=== PATIENT | female | born 1995 | race Asian ===

== ENCOUNTER 2020-04-26 16:56 | Inpatient (IN) | payer BC ==
[~2020-04-26] VITALS: Ht 147.3 cm; Wt 56.3 kg
[2020-04-26] MEDS ORDERED: magnesium hydroxide 30ml (MOM) UD suspension PO PRN (19:45)
[2020-04-26] MEDS ORDERED: loperamide 2mg capsule PO PRN (19:45)
[2020-04-26] MEDS ORDERED: mag hydrox/Alum hydrox/simeth 30ml oral suspension PO PRN (19:45)
[2020-04-26] MEDS ORDERED: acetaminophen 325mg tablet PO PRN ×2 (19:45)
[2020-04-26] MEDS ORDERED: LORazepam 1 MG tablet PO PRN (19:45)
[2020-04-26] MEDS ORDERED: PRAZ2CAP2 PO (20:17)
[2020-04-26] MEDS ORDERED: VENL150C2 PO (20:17)
[2020-04-26] MEDS ORDERED: BUPR300T53 PO (20:17)
[2020-04-26] MEDS ORDERED: ARIP10TA9 PO (20:17)
[2020-04-26] MEDS ORDERED: VENL37.55 PO (20:17)
[2020-04-26 20:19] VITALS: BP 120/87
[2020-04-26] MEDS: buPROPion SR 150mg tablet PO SCH (20:41)
[2020-04-26] MEDS: ARIPIPRAZOLE 10 MG TABLET PO SCH (21:20)
[2020-04-26] MEDS: prazosin 1mg capsule PO SCH (21:20)
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
[2020-04-27] MEDS: buPROPion SR 150mg tablet PO SCH ×3 (08:02→21:09)
[2020-04-27] MEDS: venlafaxine XR 37.5mg cap (Q24H) PO SCH (08:02)
[2020-04-27] MEDS: venlafaxine XR 75mg capsule (Q24H) PO SCH (08:02)
[2020-04-27 08:21] VITALS: BP 106/66
[2020-04-27 09:07] LABS: CHOLESTEROL 199 MG/DL (0-200); HDL CHOLESTEROL 98 MG/DL (35-60); LDL CHOLESTEROL 99 MG/DL (50-100); TRIGLYCERIDES 89 MG/DL (20-135)
--- NOTE | 2020-04-27 10:00 | NUR ---
Group Therapy: Process Group This Clinicians goal for this process group were as follows: (1) Ask scaling questions about Patients current anxiety, depression, and irritability symptoms as a check-in. (2) Provide psychoeducation on differences between passive, passive-aggressive, assertive, and aggressive forms of communication. (3) Provide psychoeducation on fair fighting rules to illustrate principles of assertive communication. (4) Process Patients thoughts and reflections on this topic within the group milieu. Patient identified experiencing the following levels of anxiety, depression, and anger/irritability while present in the group milieu (0-low; 10-High). Anxiety: 0/10 Depression: 6/10 Anger/irritability: 0/10 Patient presented as properly oriented x4 during the process group. Patient was dressed in green hospital scrubs within the milieu. Psychomotor activity was unremarkable. Patient's thought content was clear, and concrete. Patient's thought process was clear, coherent, and linear. This Clinician did not observe Patient responding to any internal stimuli during session. The rate, latency, and tone of Patients speech was within normal limits. Patients speech was clear, and understandable. Patient maintained intermittent eye contact with this Clinician. Patient presented in calm euthymic mood, with blunted affect during the process group. Patient presented as cooperative, verbally engaged when addressed by this Clinician, and nonobtrusive within the group milieu. This Clinician introduced himself to Patient as it was her first time present in the group milieu. Patient presented as largely subdued during the process group discussion on different forms of communication--passive, aggressive, and assertive--but was able to correctly identify different traits commonly associated with each style of communication when prompted by this Clinician to do so. Kraig Lindsey MA, [employer] Addendum: 04/27/20 at 1117 by Kraig Lindsey SS Amended: Links added.
--- NOTE | 2020-04-27 11:48 | NUR ---
Assessment Presenting Issues: Pt was admitted to [facility] after being 5150 following an intentional OD of her prescription meds. Interventions: SS utilized OK strategies to engage pt in completing her bio-psychosocial assessment, PTSD, and Dissociative Experience Scale. Per psychosocial assessment pt's sxs and experiences appears to meet DSM 5 criteria for MDD-single episode-recurrent and there appears to be a seasonal impact associated with PHF admissions. Furthermore the PTSD Checklist score indicates that pt's sxs meet DSM 5 criteria for PTSD. DESII score suggests that there is a high degree of dissociative experiences. Discussed results of assessment data with pt and educated her on available options @ [facility] to treat her sxs. Pt agreeable to medication treatment and psychotherapeutic interventions and CM support for dcp. Pt signed CHUCKY & TP # 9. Plan: SS will consult w/MD & therapists re treatment options. Lashell Mckeon LCSW Addendum: 04/29/20 at 1155 by Lashell GAMINO Amended: Links added.
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
[2020-04-27 19:32] VITALS: BP 106/71
[2020-04-27] MEDS: ARIPIPRAZOLE 10 MG TABLET PO SCH (21:09)
[2020-04-27] MEDS: prazosin 1mg capsule PO SCH (21:09)
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
[2020-04-28 07:39] VITALS: BP 111/68
[2020-04-28] MEDS: venlafaxine XR 37.5mg cap (Q24H) PO SCH (08:01)
[2020-04-28] MEDS: buPROPion SR 150mg tablet PO SCH ×2 (08:01→20:00)
[2020-04-28] MEDS: venlafaxine XR 75mg capsule (Q24H) PO SCH (08:01)
--- NOTE | 2020-04-28 10:00 | NUR ---
Group Therapy: Process Group This Clinicians goal for this process group were as follows: (1) Ask scaling questions about patients current anxiety, depression, and irritability symptoms as a check-in. (2) Provide psychoeducation on grounding activities as a means to reduce the acuity of unwanted mental health symptoms. (3) Introduce mandalas as one such activity for group participation within the milieu. (4) Check-in with patients during the coloring activity to reinforce the importance of engaging in adaptive grounding activities. Patient identified experiencing the following levels of anxiety, depression, and anger/irritability while present in the group milieu (0-low; 10-High). Anxiety: 0/10 Depression: 6/10 Anger/irritability: 0/10 Patient presented as properly oriented x4 during the process group. Patient was dressed in green hospital scrubs within the milieu. Psychomotor activity was unremarkable. Patient's thought content was clear, and concrete. Patient's thought process was clear, coherent, and linear. This Clinician did not observe Patient responding to any internal stimuli during session. The rate, and latency, of Patients speech was within normal limits. She spoke in a soft tone of voice. Patients speech was clear, and understandable. Patient sat with her back to this Clinician as she colored her mandala and did not make eye contact with this Clinician. Patient presented in calm euthymic mood, with blunted affect during the process group. Patient presented as cooperative and nonobtrusive within the group milieu. Patient quietly colored her mandala during the process group discussion. She was largely verbally subdued, but responded to this Clinician casually when he talked to her and asked her questions. Kraig Lindsey MA, [employer] Addendum: 05/01/20 at 0807 by Kraig Lindsey Amended: Links added.
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
[2020-04-28 19:26] VITALS: BP 117/67
[2020-04-28] MEDS: ARIPIPRAZOLE 10 MG TABLET PO SCH (20:40)
[2020-04-28] MEDS: prazosin 1mg capsule PO SCH (20:40)
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
[2020-04-29 07:40] VITALS: BP 118/70
[2020-04-29] MEDS: venlafaxine XR 37.5mg cap (Q24H) PO SCH (08:09)
[2020-04-29] MEDS: venlafaxine XR 75mg capsule (Q24H) PO SCH (08:09)
[2020-04-29] MEDS: buPROPion SR 150mg tablet PO SCH ×2 (08:10→17:24)
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
[2020-04-29 20:00] VITALS: BP 119/76
[2020-04-29] MEDS: prazosin 1mg capsule PO SCH (21:13)
[2020-04-29] MEDS: ARIPIPRAZOLE 10 MG TABLET PO SCH (21:14)
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
[2020-04-30 07:27] VITALS: BP 97/64
[2020-04-30] MEDS: venlafaxine XR 37.5mg cap (Q24H) PO SCH (08:15)
[2020-04-30] MEDS: buPROPion SR 150mg tablet PO SCH ×2 (08:15→17:03)
[2020-04-30] MEDS: venlafaxine XR 75mg capsule (Q24H) PO SCH (08:15)
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
--- NOTE | 2020-04-30 13:49 | NUR ---
1:1 session: Met with pt after lunch in her room as a follow up from yesterdays process group. Today pt presented with brighter affect with occasional smiles.Early in the morning I observed pt engaged in the community room with 2 other female patients involved with a board game and engaging in conversations with pt laughing and enjoying the social connections. In our session pt had good eye contact,thoughts were linear and organized and she was recounting her experiences in [facility] and reasons why she relocated to [place] in December. Depression is evident but denied any further thoughts of suicide.Feeling more hopeful but the struggle is in continued social isolation. 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 which opened more conversation on both of our experiences in the social work world and the other common is that I told her I was born and [place] [facility] [place] [facility] the area she was employed for 2 years and we compared notes on places in [place].Stated as a little girl she wanted to get into a career to help people and set her sights on becoming a psychiatrist which she chuckled and said too many obstacles but early on after her adopted mother and pt briefly was involved in grief counseling and was her introduction to social work and made getting 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 Stated she also has realized she needs to establish with a medical provider as well as a therapist in the community but is maintaining telehealth with her current psychiatrist and therapist in [facility]. Encouraged pt to continue participating in daily groups/activities to further benefit from her tx here which she stated she would. KI Ji
[2020-04-30] MEDS: sertraline 50mg tablet PO SCH (20:06)
[2020-04-30] MEDS: ARIPIPRAZOLE 10 MG TABLET PO SCH (20:06)
[2020-04-30] MEDS: prazosin 1mg capsule PO SCH (20:06)
[2020-04-30 20:10] VITALS: BP 117/84
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
[2020-05-01 07:19] VITALS: BP 106/73
[2020-05-01] MEDS ORDERED: buPROPion SR 100mg tab PO SCH (08:00)
[2020-05-01] MEDS: venlafaxine XR 75mg capsule (Q24H) PO SCH ×2 (08:45→08:59)
--- NOTE | 2020-05-01 09:50 | NUR ---
Met with Coleen to discuss discharge planning. She reported she would like to see Ashley Marley for out-patient therapy. She reported she sees a psychiatrist via tele-health, however, would like to see a local provided. Completed and faxed referral to [facility]. Sharepoint Net Developer will follow up to attempt to schedule a follow up appointment for Coleen. Informed her that it may be a while before she can get an appt and that she may need to schedule follow up with her current provider, she was agreeable to this. JEFF Sosa
--- NOTE | 2020-05-01 10:00 | NUR ---
Group Therapy: Process Group This Clinicians goals for this process group were as follows: (1) Ask scaling questions about Patients current anxiety, depression, and irritability symptoms as a check-in. (2) Share psychoeducation about emotional escalation as it relates to stress and negative symptoms, Fight, flight, freeze. (2) Provide psychoeducation on the STOPP acronym: Stop, Take a Breath, Observe the situation, Put things into perspective, and, Practice what works. (3) Share psychoeducation on principles of mindfulness and emotional relaxation techniques that Patients may utilize to reduce the acuity of unwanted emotional escalation. (5) Process patients thoughts and reflections on this topic within the group milieu. Patient identified experiencing the following levels of anxiety, depression, and anger/irritability while present in the group milieu (0-low; 10-High). Anxiety: 4/10 Depression: 4/10 Anger/irritability: 0/10 Patient presented as properly oriented x4 during the process group. Patient was dressed in green hospital scrubs within the milieu. Psychomotor activity was unremarkable. Patient's thought content was clear, and concrete. Patient's thought process was clear, coherent, and linear. This Clinician did not observe Patient responding to any internal stimuli during session. The rate, latency, and tone of Patients speech was within normal limits. Patients speech was clear, and understandable. Patient maintained regular eye contact with this Clinician. Patient presented in calm euthymic mood, with congruent affect during the process group. Patient presented as open, cooperative, and nonobtrusive within the group milieu. Patient presented as verbally subdued during the process group discussion on the STOPP method of emotional deescalation; however, she did make comments when directly addressed by this Clinician. She made better eye contact than she had in recent process groups with this Clinician. Additionally, this Clinician observed Patient smiling more than she has in past process groups. Kraig Lindsey MA, JEFF Addendum: 05/01/20 at 1128 by Kraig Lindsey SS Amended: Links added.
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
--- NOTE | 2020-05-01 14:06 | NUR ---
Initial: Pt admit DX SI, major depression, and PTSD on 5150 hold per EMR. PO 75-100% avg regular diet meeting needs. LBM 04/30. No nutrition concerns at this time. Will continue to monitor. Rec: 1. continue regular diet 2. routine bowel care 3. wt per rx Addendum: 05/01/20 at [address] Amended: Links added.
[2020-05-01] MEDS: buPROPion SR 100mg tab PO SCH (14:32)
--- NOTE | 2020-05-01 15:48 | NUR ---
Left message for Whitney Erickson at [facility] (ph# [phone] ext [phone]) to inquire about the time frame for a new patient appt. Requested a call back. JEFF Sosa
[2020-05-01 19:33] VITALS: BP 117/74
[2020-05-01] MEDS: traZODone 50mg tablet PO PRN (20:29)
[2020-05-01] MEDS: sertraline 50mg tablet PO SCH (20:29)
[2020-05-01] MEDS: prazosin 1mg capsule PO SCH (20:29)
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
[2020-05-02 07:47] VITALS: BP 107/66
[2020-05-02] MEDS: buPROPion SR 100mg tab PO SCH ×2 (08:57→14:01)
[2020-05-02] MEDS: aripiprazole 5mg tablet PO SCH (08:57)
[2020-05-02] MEDS: venlafaxine XR 75mg capsule (Q24H) PO SCH (08:57)
--- NOTE | 2020-05-02 10:00 | NUR ---
Group Therapy: Process Group This Clinicians goals for this process group were as follows: (1) Ask scaling questions about patients current anxiety, depression, and irritability symptoms as a check-in. (2) Provide psychoeducation on emotional and situational stressors. (3) Discuss thoughts and feelings that patients experience when they have experienced an emotional and/or situational stressor. (4) Provide psychoeducation on interventions, as actions patients can take to reduce feelings of emotional escalation caused by situational and emotional stressors. (5) Process patients thoughts and reflections on this topic within the group milieu. Milieu staff was present during the process group to monitor patient behaviors. Patient identified experiencing the following levels of anxiety, depression, and anger/irritability while present in the group milieu (0-low; 10-High). Anxiety: 0/10 Depression: 3/10 Anger/irritability: 0/10 Patient presented as properly oriented x4 during the process group. Patient was dressed in [facility] hospital scrubs within the milieu. Psychomotor activity was unremarkable. Patient's thought content was clear, and concrete. Patient's thought process was clear, coherent, and linear. This Clinician did not observe Patient responding to any internal stimuli during session. The rate, latency, and tone of Patients speech was within normal limits. Patients speech was clear and understandable. Patient maintained regular eye contact with this Clinician. Patient presented in calm euthymic mood, with congruent affect during the process group. Patient presented as cooperative, and nonobtrusive within the group milieu. Patient was largely verbally subdued during the process group discussion on identifying interventions that one could use to anticipate and reduce the acuity of symptoms caused by stressful, triggering situations. Patient's affect was bright. This Clinician observed her smiling, and occasionally laughing during the process group, during moments of levity. Kraig Lindsey MA, FRACTIONATION PLANT SUPERVISOR Addendum: 05/02/20 at 1114 by Kraig Lindsey Amended: Links added.
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
--- NOTE | 2020-05-02 18:19 | NUR ---
Nursing Note: This technical document writer spoke to Dr. Arce via telephone. Obtained orders to increase pt's Zoloft to 150mg at HS and decrease Effexor to 112.5 daily, pt. is agreeable with this plan.
[2020-05-02 19:37] VITALS: BP 123/80
[2020-05-02] MEDS: prazosin 1mg capsule PO SCH (20:13)
[2020-05-02] MEDS: traZODone 50mg tablet PO PRN (20:14)
[2020-05-02] MEDS ORDERED: sertraline 50mg tablet PO SCH (21:00)
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
[2020-05-03] MEDS ORDERED: venlafaxine XR 37.5mg cap (Q24H) PO SCH (08:00)
[2020-05-03 08:05] VITALS: BP 93/53
[2020-05-03] MEDS: buPROPion SR 100mg tab PO SCH ×2 (08:40→13:06)
[2020-05-03] MEDS: aripiprazole 5mg tablet PO SCH (08:40)
[2020-05-03] MEDS ORDERED: TRAZ-251 PO (13:06)
[2020-05-03] MEDS ORDERED: BUPR450T3 PO (13:06)
[2020-05-03] MEDS ORDERED: PRAZ2CAP2 PO (13:06)
[2020-05-03] MEDS ORDERED: ARIP5TAB60 PO (13:06)
[2020-05-03] MEDS ORDERED: SERT100T10 PO (13:06)
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
--- NOTE | 2020-05-03 18:18 | NUR ---
1:1 Patient met with the below named therapist for the purpose of reviewing her history of pain and unprocessed trauma. A discussion followed, which patient noted she will be talking w/ her SW about re: her discharge plan and out patient therapy. Provided patient with Bi-lateral sound as an introduction into brainspotting, for the purpose of relaxation, stress management and emotional regulation. Patient will be discharging tomorrow. Petra Green MA Licensed Marriage, Family Therapist #[id number] [facility] Art Therapist Addendum: 05/03/20 at 1821 by Petra GAMINO Amended: Links added.
[2020-05-03 20:00] VITALS: BP 110/77
[2020-05-03] MEDS: prazosin 1mg capsule PO SCH (20:04)
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
[2020-05-04 07:53] VITALS: BP 100/56
[2020-05-04] MEDS ORDERED: sertraline 50mg tablet PO SCH (08:00)
[2020-05-04] MEDS ORDERED: venlafaxine XR 75mg capsule (Q24H) PO SCH (08:00)
[2020-05-04] MEDS: aripiprazole 5mg tablet PO SCH (08:03)
[2020-05-04] MEDS: buPROPion SR 100mg tab PO SCH ×2 (08:04→13:35)
--- NOTE | 2020-05-04 10:00 | NUR ---
Group Therapy: Process Group This Clinicians goals for this process group were as follows: (1) Ask scaling questions about patients current anxiety, depression, and irritability symptoms as a check-in. (2) Share with patients psychoeducation about the importance of being able to identify safe, and supportive people who can assist them with their mental and emotional needs. (3) Share psychoeducation on interpersonal boundaries and considerations to assist patients in developing the ability to discern which groups and individuals will be helpful in assisting them during times of emotional escalation and crisis. (4) Engage patients in discussion of the topics discussed within the group milieu. Patient identified experiencing the following levels of anxiety, depression, and anger/irritability while present in the group milieu (0-low; 10-High). Anxiety: 6/10 Depression: 3/10 Anger/irritability: 0/10 Patient presented as properly oriented x4 during the process group. Patient was dressed in nondescript, personal clothing that were appropriate within the milieu. Psychomotor activity was unremarkable. Patient's thought content was clear, and concrete. Patient's thought process was clear, coherent, and linear. This Clinician did not observe Patient responding to any internal stimuli during session. The rate, latency, and tone of Patients speech was within normal limits. Patients speech was clear, and understandable. Patient maintained regular eye contact with this Clinician. Patient presented in calm euthymic mood, with congruent affect during the process group. Patient presented as open, cooperative, and nonobtrusive within the group milieu. During her initial check-in with this Clinician, Patient reported that her anxiety level was at a, "6/10," which she reported was due to her feeling nervous about her pending discharge today. Patient presented as verbally engaged during the process group discussion of interpersonal boundaries in the context of identifying safe, and supportive people that one could speak to in order to receive mental health support. She identified several people that were in her cohort group in graduate school that she could talk to, if she needed extra mental health support in a given moment. Kraig Lindsey MA, FINANCIAL EXAMINER Addendum: 05/04/20 at 1133 by Kraig GAMINO Amended: Links added.
--- NOTE | 2020-05-04 13:54 | NUR ---
1:1: Safety Planning Presenting Issues: Pt is anxious about d/c home as she has no natural support system. Interventions: SS met w/pt @ bedside, utilized OR strategies to support pt in identifying the triggers associated w/her anxiety re discharging from [facility]. Pt able to verbalize that she worries that the last 3 [facility] admissions were almost back-back. SS utilized CBT strategies to support pt in identifying similarities & differences between the last [facility] d/c and this one. Pt was able to note that there are no similarities, "the last hospital did not have any f/u scheduled for me, and I did not get to attend groups or work with any therapist during my hospitalization". When asked how she feels about this discharge, pt was able to note the different components of her dcp & aftercare plan. SS also engaged pt in creating a support system for herself as she has no natural support system. Pt was provided with a listing of community based support providers to take with her. Pt will connect w/a co-worker that she trusts and ask if it would be ok for her to contact her co-worker during this weekend and the following week, Pt will also contact [facility] to see if they need any volunteers to deliver holiday cheers to the homebound or children in the foster care system. At the end of the session pt was asked to rank her comfort re d/c on a scale of 1-10, 10 being worst and 1 being good; pt rated herself at a 3 and states, "I feel alot better now". Plan: Pt to d/c this afternoon. Lashell Mckeon LCSW Addendum: 05/04/20 at 1439 by Lashell GAMINO Amended: Links added.
--- NOTE | 2020-05-04 15:40 | NUR ---
DISCHARGE NOTE: Patient was discharged from unit at 1535. Pt ambulated independently to lobby with PCTSonya. Pt left with all personal belongings. Discharge instructions were reviewed and patient verbalized understanding. Pt was alert & oriented. Pt stated she is going to [employer] as soon as she gets home. Pt states she loves art and it helps comfort her. Pt has some anxiety about going home and hopes doing art work will help eleviate this.
== END 2020-05-04 15:36 | disposition home or self-care (01) | DRG 885 ==
LOC: ADULT MH 19:31
PROVIDERS: ADMIT Psychiatry & Neurology Psychiatry; ATTEND Psychiatry & Neurology Psychiatry
DX: F33.3 Major depressive disorder, recurrent, severe with psychotic symptoms (principal); F43.10 Post-traumatic stress disorder, unspecified; Z85.810 Personal history of malignant neoplasm of tongue
CPT/HCPCS: 36415; 80061; 83036; 87081

== ENCOUNTER 2021-02-02 14:21 | Emergency (ER) | payer BC ==
[~2021-02-02] VITALS: Ht 147.3 cm; Wt 61.4 kg
[~2021-02-02 14:21] MED LIST: ARIP5TAB60 PO; BUPR450T3 PO; PRAZ2CAP2 PO; SERT-434 PO; TRAZ-251 PO
[2021-02-02 15:42] LABS: BASOPHILS % (AUTO) 0.6 % (0-1); EOSINOPHILS % (AUTO) 0.6 % (0-6); HEMATOCRIT 42.4 % (35.0-45.0); HEMOGLOBIN 14.5 g/dl (12.0-16.0); LYMPHOCYTES # (AUTO) 1.9 X10'3 (1.1-4.8); LYMPHOCYTES % (AUTO) 23.9 % (21-51); MEAN CORPUSCULAR HEMOGLOBIN 29.5 PG (27.0-31.0); MEAN CORPUSCULAR HGB CONC 34.2 g/dL (33.0-36.5); MEAN CORPUSCULAR VOLUME 86.2 FL (78-98); MEAN PLATELET VOLUME 9.6 FL (7.4-10.4); MONOCYTES # (AUTO) 0.3 X10'3 (0-0.9); MONOCYTES % (AUTO) 3.8 % (2-12); NEUTROPHILS # (AUTO) 5.6 X10'3 (1.8-7.7); NEUTROPHILS % (AUTO) 71.1 % (42-75); PLATELET COUNT 296 X10'3 (140-440); RED BLOOD COUNT 4.92 X10'6 (4.20-5.60); RED CELL DISTRIBUTION WIDTH 12.8 % (11.5-14.5); WHITE BLOOD COUNT 7.8 X10'3 (4.5-11.0)
[2021-02-02 15:57] LABS: ALANINE AMINOTRANSFERASE 15 U/L (12-78); ALBUMIN 4.6 G/DL (3.4-5.0); ALBUMIN/GLOBULIN RATIO 1.4 (1.1-1.5); ALKALINE PHOSPHATASE 81 IU/L (46-116); ANION GAP 12 (8-16); ASPARTATE AMINO TRANSFERASE 16 U/L (10-37); BILIRUBIN,TOTAL 0.4 MG/DL (0.1-1.0); BLOOD UREA NITROGEN 11 MG/DL (7-18); BUN/CREATININE RATIO 13.3 (6.6-38.0); CALCIUM 9.4 MG/DL (8.5-10.1); CHLORIDE 104 MMOL/L (99-107); CREATININE 0.83 MG/DL (0.40-0.90); GLUCOSE 95 MG/DL (70-104); LIPASE 80 U/L (73-393); POTASSIUM 3.9 MMOL/L (3.5-5.1); SODIUM 140 MMOL/L (135-145); TOTAL CARBON DIOXIDE 23.6 MMOL/L (24-32); eGFR 82 ML/MIN
[2021-02-02 16:12] LABS: URINE HCG NEGATIVE (NEG)
[2021-02-02 16:41] LABS: CLARITY,URINE SLIGHTLY CLOUDY (Clear); COLOR,URINE YELLOW (Yellow); GLUCOSE, URINE NEGATIVE (Neg); PROTEIN,URINE NEGATIVE (Neg); UA COLLECTION TYPE CLN CATCH MIDSTREAM
[2021-02-02 16:42] LABS: KETONES,URINE 80 mg/dl (Neg); LEUKOCYTE ESTERASE ,URINE NEGATIVE (Neg); NITRITES, URINE NEGATIVE (Neg); OCCULT BLOOD,URINE NEGATIVE (Neg); UROBILINOGEN,URINE 0.2 E.U/dL (0.2-1.0)
[2021-02-02 16:44] LABS: BACTERIA,URINE 3+ /HPF (Neg); MUCUS STRANDS MANY /LPF (Neg); RBC,URINE 0-2 /HPF (0-2); SQUAMOUS EPITHELIAL CELL,UR MANY /LPF (FEW); WBC,URINE 0-4 /HPF (0-4)
[2021-02-02] MEDS ORDERED: ketorolac tromethamine 15mg/ml inj. IM ONE (17:50)
[2021-02-02] MEDS ORDERED: IBUP-1984 PO (17:51)
[2021-02-02 18:38] VITALS: BP 138/96
== END 2021-02-02 18:39 | disposition home or self-care (01) ==
LOC: ER 14:21
DX: N83.202 Unspecified ovarian cyst, left side (principal); N39.0 Urinary tract infection, site not specified; R10.2 Pelvic and perineal pain; Z79.899 Other long term (current) drug therapy
CPT/HCPCS: 36415; 74176; 80053; 81001; 81025; 83690; 85025; 96372; 99284; J1885

== ENCOUNTER 2025-01-22 19:57 | Emergency (ER) | payer BC, SELFPAY ==
[~2025-01-22] VITALS: Ht 147.3 cm; Wt 47.1 kg
[~2025-01-22 19:57] MED LIST changes: +ARIP5TAB53 PO; -ARIP5TAB60 PO; -BUPR450T3 PO; +BUPR450T5 PO
[2025-01-22] MEDS: HYDROcodone/acetaminophen 5mg/325mg tablet PO ONE (20:29)
--- NOTE | 2025-01-22 20:36 | Physician Documentation ---
History of Present Illness ~ Chief Complaint: Mental Health Eval Stated Complaint: MH Time Seen by MD: 20:17 HPI This is a 29-year-old female who was brought into us by [facility] for a voluntary psychiatric evaluation. This young lady called the help line and requested help. She has extensive medical history including chronic pain and various suspected neurologic, endocrine, gynecologic disorders. She evidently indicates that she is receiving help from [facility]. Originally she provided me with a hospice statement indicating that she does not want invasive tests, but rather wants comfort oriented trauma informed management of her symptoms. I, respecting her directives, and tender to provide her with the pain management and discharged the patient. However while we were procure in medication she wrote down that if she goes home she will kill myself by overdosing on gabapentin. At this point unfortunately we need to place her on 179 legal hold. It is important to note that the patient communicated with me exclusively in the riding. She has multiple pages of various deterioration is an statements, screen shots of communication with the various people. With a respect to pelvic pain, she indicates that as of 01/13/2025 she has been experiencing subacute with the pain with a worsening vaginal discharge and vaginal bleeding despite hysterectomy. Medication Reconciliation Allergies: Coded Allergies: No Known Drug Allergies (Verified Allergy, Unknown, 04/26/20) Scheduled Bupropion HCl (Bupropion Xl), 1 TAB PO DAILY, (Reported) Clonidine HCl (Clonidine HCl), 0.2 MG PO QPM, (Reported) Gabapentin (Gabapentin), 400 MG PO QAM, (Reported) Gabapentin (Gabapentin), 1,200 MG PO QPM, (Reported) Hydroxyzine Hcl* (Atarax*), 2 TAB PO HS, (Reported) [place] Carbonate* ([place] Carbonate*), 1 TAB PO Q12H, (Reported) Methylphenidate HCl (Concerta), 1 TAB PO QAM, (Reported) Tizanidine Hcl (Zanaflex), 1 CAP PO HS, (Reported) Discontinued Medications Aripiprazole (Aripiprazole), 1 TAB PO DAILY Discontinued Reason: patient no longer taking Bupropion HCl (Bupropion Xl), 1 TAB PO QAM Discontinued Reason: patient no longer taking Linaclotide (Linzess), 72 MCG PO, (Reported) Discontinued Reason: completed med therapy Prazosin Hcl (Prazosin Hcl), 1 CAP PO HS Discontinued Reason: patient no longer taking Sertraline HCl (Sertraline HCl), 2 TAB PO DAILY Discontinued Reason: patient no longer taking Tizanidine Hcl (Zanaflex), 1 CAP PO Q8H, (Reported) Discontinued Reason: patient no longer taking Trazodone HCl (Trazodone HCl), 50 MG PO HS PRN for INSOMNIA Discontinued Reason: patient no longer taking Review of Systems ROS 10 point review of systems was performed and unless noted above in HPI is negative for acute process/complaint. Physical Exam Vital Signs: Temperature: 99.3, Source: Oral, Heart Rate: 125, Respiratory Rate: 18, BP: 156/109, Pulse Oximetry: 97, Weight: 47.100 Physical Exam Physical examination: GENERAL: Awake, alert, oriented, GCS 15, no apparent distress, non-toxic appearing, answers questions in writing, follows commands appropriately. Petite young lady examined in bed 15. Appears disheveled. HEENT: Atraumatic, normocephalic, pupils equal, extraocular muscles intact Active gross movements, sclerae anicteric, mucus membranes moist, no stridor. NECK: Midline, no JVD CARDIOVASCULAR: Good skin perfusion without evidence of pallor, mottling. PULMONARY: Nonlabored, symmetric chest rise, no audible wheezing, no accessory muscle use, no respiratory distress, speaking in full sentences. GASTROINTESTINAL: Not distended. NEUROLOGIC: Lucid with normal mental status. Normal facial symmetry. Moves all extremities symmetrically and with purpose. No truncal ataxia. Speech is fluid without evidence of dysarthria or aphasia, no focal deficits appreciated. EXTREMITIES: Acute deformities Skin: warm, dry PSYCHIATRIC: Normal affect, normal insight, normal concentration. Focused exam: [] Progress Results/Orders Results/Orders Orders - LOPEZ TEAGUE DO Med Rec (01/22/25 20:29) 1799.11 (01/22/25 20:29) Close Observation Level (01/22/25 20:29) Covid19 Binax Poc Result Entry (01/22/25 20:29) Substance Use Navigator (01/22/25 20:29) Regular Diet (01/23/25 Breakfast) Culture Blood (01/22/25 20:40) Gabapentin Capsule (Neurontin Capsule) (01/23/25 08:00) Bupropion Hcl 150mg Xl 24 Hr (Wellbutrin (01/23/25 08:00) Miscellaneous (Patient's Own Medication) (01/23/25 08:00) Tizanidine Tablet (Zanaflex Tablet) (01/22/25 22:05) Clonidine Tablet (Catapres Tablet) (01/22/25 22:05) [place] Carbonate 450mg Cr (Eskalith Cr (01/22/25 22:05) Hydroxyzine Tablet (Atarax Tablet) (01/22/25 22:06) Gabapentin Capsule (Neurontin Capsule) (01/22/25 22:07) Wet Prep (01/22/25 22:25) Ct Abdomen Pelvis (01/22/25 23:15) Completed Orders - LOPEZ TEAGUE DO Hydrocodone/Apap 5/325mg Tab (Keota 5/32 (01/22/25 20:25) Cbc/Diff (01/22/25 20:29) Urinalysis (01/22/25 20:29) Hcg, Ur Ql (01/22/25 20:29) Drug Screen, Urine (01/22/25 20:29) Ethanol (01/22/25 20:29) TSH (01/22/25 20:29) BMP (01/22/25 20:29) Lacticsepsis (01/22/25 20:40) Olanzapine Im (Zyprexa I.M. Im On (01/22/25 22:35) Ct Abdomen Pelvis (01/22/25 23:15) Iohexol 300mg/Ml 100ml Inj. (Omnipaque-3 (01/22/25 22:53) Medications Received in ER Medications (Trade) Dose Ordered Sig/Rock Route PRN Reason Start Time Stop Time Status Last Admin Dose Admin (Ke[place] 5/325mg tablet) 1 tab ONCE ONCE PO 01/22/25 20:25 01/22/25 20:26 DC 01/22/25 20:29 1 TAB (Eskalith CR 450mg tablet) 450 mg Q12H PO 01/22/25 22:05 01/22/25 22:18 450 MG (Catapres tablet) 0.2 mg QPM PO 01/22/25 22:05 01/22/25 22:17 0.2 MG (ZyPREXA I.M. IM ONLY) 10 mg ONCE ONCE IM 01/22/25 22:35 01/22/25 22:36 DC 01/22/25 22:54 10 MG Vital Signs 01/22/25 01/22/25 01/22/25 20:08 21:20 22:15 Temp 99.3 Pulse 125 101 Resp 18 16 18 B/P (MAP) 156/109 140/99 (113) Pulse Ox 97 97 Laboratory Tests Test 01/22/25 20:45 01/22/25 20:57 01/22/25 21:21 White Blood Count 10.9 Red Blood Count 4.48 Hemoglobin 13.7 Hematocrit 39.1 Mean Corpuscular Volume 87.3 Mean Corpuscular Hemoglobin 30.7 Mean Corpuscular Hemoglobin Concent 35.1 Red Cell Distribution Width 14.4 Platelet Count 270 Mean Platelet Volume 9.7 Neutrophils (%) (Auto) 72.1 Lymphocytes (%) (Auto) 21.2 Monocytes (%) (Auto) 5.6 Eosinophils (%) (Auto) 0.3 Basophils (%) (Auto) 0.8 Neutrophils # (Auto) 7.9 H Lymphocytes # (Auto) 2.3 Monocytes # (Auto) 0.6 Eosinophils # (Auto) 0.0 Basophils # (Auto) 0.1 CBC Comment Sodium Level 137 Potassium Level 3.8 Chloride Level 102 Carbon Dioxide Level 26.4 Anion Gap 9 Blood Urea Nitrogen 8 Creatinine 0.48 Estimated GFR/1.73 m2 > 90 BUN/Creatinine Ratio 16.7 Glucose Level 115 H Lactic Acid Level 1.5 Calcium Level 9.5 Albumin 4.1 Thyroid Stimulating Hormone (TSH) 1.53 Chemistry Comments Ethyl Alcohol Level < 10 Urine Specimen Description Cln catch midstream Urine Color Yellow Urine Clarity Clear Urine pH 7.0 Urine Specific Sumner 1.010 Urine Protein Negative Urine Glucose (UA) Negative Urine Ketones 15 H Urine Occult Blood Negative Urine Nitrite Negative Urine Bilirubin Negative Urine Urobilinogen 0.2 Urine Leukocyte Esterase Negative Volume Urine Centrifuged 10 ml Urine HCG, Qualitative Negative Urine Comment Urine Opiates Screen Negative Urine Methadone Screen Negative Urine Fentanyl Screen Negative Urine Barbiturates Screen Negative Urine Phencyclidine Screen Negative Urine Amphetamines Screen Negative Urine Benzodiazepines Screen Negative Urine Cocaine Screen Negative Urine Cannabinoids Screen Negative Drug Screen Comment SARS-CoV-2 Antigen (Rapid) Negative Microbiology Date/Time Source Procedure Growth Status 01/22/25 20:45 Blood Arm Left Blood Culture - Preliminary NEGATIVE (LESS THAN 24 HOURS) Resulted Medical Decision Making Findings Facility Status: [facility] Holds, [facility] The plan was discussed with the patient, who demonstrates clear understanding of the plan and is in agreement with the plan unless otherwise noted in the chart. All questions have been answered, all concerns were addressed unless otherwise documented. I was available throughout their ED stay for frequent reassessment and questions. Differential Diagnoses (considered and possible or likely): [Unfortunately this young lady made suicidal statements, we will be placed on legal hold for mental health evaluation. With respect to pelvic pain, Differential diagnosis considered includes endometr itis, dysmenorrhea, ovarian cyst, ovarian torsion, PID, TOA, cervicitis, vaginitis, or uterine fibroid. History, physical exam, and workup exclude many of the more serious causes listed above. However she has a deterioration that she desires comfort measures. No workup will be undertaken. Pain we will be treated. ] ??Differential Diagnoses (considered and unlikely, not requiring evaluation currently): [No evidence of self-harm today] MDM Data Please see [facility] for the following: Independent Historians and external Records Review. Historian: [Patient] Independent Historians: ?[Mental health, record review] Medication Management: [Reviewed medication list] Social History and determinants: [Reviewed] Please see the body of the note for the following: Any independent interpretations of ECG, imaging studies. All vitals signs/haemodynamics, ordered tests were independently reviewed and interpreted by myself. Nursing triage complaint and vitals reviewed, additional nursing notes were reviewed as available and I agree unless otherwise noted or documented in contradiction in the chart Vital Signs: Independently reviewed Labs: Independently interpreted Imaging: Independently interpreted Old Medical Records: Independently reviewed, see HPI for relevant summary and information Pulse Oximetry: [97%] interpreted as [normal on room air] by me Additionally notably showing: [Hemodynamics reviewed. Initially she is tachyca rdic, but not febrile. Tachycardia had resolved. No evidence of respiratory distress. No evidence of hypoxia or hypotension. Laboratory studies reviewed. CBC normal without evidence of leukocytosis, neutrophilic predominance, anemia, platelets and normal. Chemistry is unremarkable, no electrolyte derangement, normal renal function. Glucose is slightly elevated in the dietary arrange. Lactic acid is normal. Thyroid studies are normal. After the patient gave permission and indicated that she wanted a workup, CT was obtained to investigate her pelvic pain. It shows fecal impaction in the rectosigmoid colon. Otherwise unremarkable.] Tests considered but not ordered include: [Pelvic ultrasound has been considered, however she is status post hysterectomy. Torsion is highly unlikely given chronicity of her pain.] Social Determinants of Health Impact: Patient was evaluated in [facility], [facility] [place] to healthcare due to below par ratio of patient to medical providers. [] Comorbid Conditions Impacting Present Evaluation and Care/Treatment: [Psychiatric disease] Management Discussions with other Healthcare Providers: [Transfer orders for [facility]: At this time there is no evidence of an emergent medical condition that would preclude (admission/transfer) to a psychiatric unit via [facility] protocol for further psychiatric, as well as medical evaluation and treatment. At this time I have no reason to believe that transfer via [facility] protocol would have serious medical compromise in the patient's health.] Treatment and Disposition Medication Management (Given or considered): [Pain management]. See EMR for details Consideration for Hospitalization/Escalation/Deescalation of Care: Admission for observation has been considered, [however the patient is able to tolerate p.o., their symptoms are controlled, they are able to rely on oral medications, and their chief complaint/diagnosis can be managed on outpatient basis.] ?ED Course:?[Date: Jan 22, 2025 Time: 22:33 unfortunately despite of everyone trying to work with the patient and be considered of her past history and her wishes as stated in the paperwork, the patient had become agitated. She developed ability to speak and was able to speak with her own voice without any dysarthria or aphasia. The patient subsequently had become markedly agitated, not redirectable, repeatedly with the, it as the room. She refused to take her regularly scheduled p.m. medications. I feel that at this point she can benefit from medication to palliate her agitation. I Date: Jan 22, 2025 Time: 22:50 the patient indicated that she wants her pelvic pain to be worked up. She states that she is status post hysterectomy. We will obtain wet prep swab and CT of the abdomen and pelvis with contrast. I do not feel that ultrasound is necessary at this time. Date: Jan 23, 2025 Time: 00:39 patient responded well to Zyprexa. Pain appears to be controlled. CT is unremarkable. At this point patient is medically cleared for psychiatric evaluation. ] ?Shared decision making:?[] Code status:?FULL Please see the full Electronic Medical Record for full details of nursing docu mentation, medications list, other records of complete past medical history and conditions, vital signs, laboratory studies, and any radiologic study interpretations by radiologists. Portions of this note were completed using [employer] dictation software and as a result there may exist minor errors in spelling. I have reviewed elements of past family and social history and agree as included in note. Departure Disposition: 30 STILL A PATIENT Impression: Primary Impression: Suicidal ideation Additional Impression: Chronic pelvic pain in female Condition: Improved Referrals: NO PRIMARY CARE PROVIDER (PCP) Signature Scribe Signature: No scribe Attestation: Date: Jan 22, 2025 Time: 20:38 This note accurately reflects clinical decisions, work performed by myself, DO HO Beaver NICHOLAS M DO Jan 22, 2025 20:36
[2025-01-22] MEDS ORDERED: GABA-530 PO (20:46)
[2025-01-22] MEDS ORDERED: LITH450T2 PO (20:46)
[2025-01-22] MEDS ORDERED: TIZA4CAP PO ×2 (20:46→20:49)
[2025-01-22] MEDS ORDERED: METH36TA4 PO (20:46)
[2025-01-22] MEDS ORDERED: GABA-535 PO (20:46)
[2025-01-22] MEDS ORDERED: BUPR-559 PO (20:46)
[2025-01-22] MEDS ORDERED: CLON0.2T PO (20:46)
[2025-01-22] MEDS ORDERED: LINA145C PO (20:49)
[2025-01-22] MEDS ORDERED: HYDR-3686 PO (20:49)
[2025-01-22 20:56] LABS: MEAN PLATELET VOLUME 9.7 FL (7.4-10.4); RED CELL DISTRIBUTION WIDTH 14.4 % (11.5-14.5)
[2025-01-22 21:07] LABS: LEUKOCYTE ESTERASE ,URINE NEGATIVE (Neg); NITRITES, URINE NEGATIVE (Neg); OCCULT BLOOD,URINE NEGATIVE (Neg); URINE HCG NEGATIVE (NEG)
[2025-01-22 21:08] LABS: UA COLLECTION TYPE CLN CATCH MIDSTREAM
[2025-01-22 21:16] LABS: URINE AMPHETAMINE SCREEN NEGATIVE (Neg); URINE BARBITUATE SCREEN NEGATIVE (Neg); URINE BENZODIAZEPINES SCREEN NEGATIVE (Neg); URINE CANNABINOID SCREEN NEGATIVE (Neg); URINE COCAINE SCREEN NEGATIVE (Neg); URINE METHADONE SCREEN NEGATIVE (Neg); URINE OPIATE SCREEN NEGATIVE (Neg); URINE PHENCYCLIDINE SCREEN NEGATIVE (Neg)
[2025-01-22 21:17] LABS: CREATININE 0.48 MG/DL (0.40-0.90); ETHANOL < 10 MG/DL (<10); TOTAL CARBON DIOXIDE 26.4 MMOL/L (24-32); eCRCL 110 ML/MIN; eGFR > 90 ML/MIN
[2025-01-22] MEDS: lithium carbonate 450mg CR tablet PO SCH (22:18)
[2025-01-22] MEDS ORDERED: iohexol 300mg/ml 100ml inj. ONE (22:53)
[2025-01-22] MEDS: OLANZapine **IM** 10 mg inj. IM ONE (22:54)
--- NOTE | 2025-01-22 23:49 | RADIOLOGY REPORT ---
Exam: CT CT ABDOMEN PELVIS W/ IV CONTRAST History: Chronic pelvic pain COMPARISON: CT ABDOMEN PELVIS on DOS: 02/02/21 Technique: Multidetector spiral CT of the abdomen and pelvis was performed from lung bases to pubic s ymphysis. Intravenous contrast was administered during this examination. Portal venous imaging was obtained. Axial, coronal and sagittal multiplanar reformats were performed by the technologist on a separate workstation. Radiation Dose : 1. Abdomen/Pelvis: CTDIvol 16.8 mGy, DLP 775 mGy*cm. CONTRAST: Type of contrast: Omnipaque 300 Contrast injected: 100 mL Findings: Lung Bases: No acute or significant lung base finding. Normal heart size. No pleural or pericardial effusion. Liver: The liver is normal in size. No focal lesions. Normal hepatic vascular enhancement. Gallbladder and Biliary Tree: Unremarkable Spleen: Unremarkable Pancreas: The pancreas is normal in appearance without focal lesions or abnormal enhancement. Adrenal Glands: Unremarkable Kidneys: No hydronephrosis. Bladder: Unremarkable Bowel: The stomach is grossly normal in appearance. Small bowel and colon are normal in caliber and d istribution. The appendix is not visualized; however, no secondary findings of acute appendicitis id entified. Fecal impaction rectosigmoid colon.3 Ascites: Absent Lymphadenopathy: No mesenteric, retroperitoneal or periportal lymphadenopathy. Abdominal Wall and Mesentery: Unremarkable. Vasculature: The visualized abdominal aorta is normal in size and caliber. Abdominal and pelvic vess els demonstrate normal enhancement. Pelvic Organs: Unremarkable Musculoskeletal: No aggressive focal bony lesions, acute fractures or dislocation. IMPRESSION: 1. Fecal impaction in the rectosigmoid colon, otherwise no acute abdominal or pelvic finding. Radiation optimization: All CT scans at this facility use at least one of these dose optimization kirsten hniques: automated exposure control mA and/or kV adjustment per patient size (includes targeted exam s where dose is matched to clinical indication) or iterative reconstruction.
[2025-01-23] MEDS: BUPROPION HCL 150MG XL 24 HR 150 MG TAB PO SCH (08:00)
[2025-01-23] MEDS: METHYLPHENIDATE HCL 36 MG PO SCH (08:00)
[2025-01-26 14:14] VITALS: BP 133/95; PULSE 97; RESP 16; TEMP 98.1; O2SAT 98
== END 2025-01-26 14:10 | disposition still patient (30) ==
LOC: ER 19:57
DX: R45.851 Suicidal ideations (principal); G89.29 Other chronic pain; R10.2 Pelvic and perineal pain; Z90.710 Acquired absence of both cervix and uterus; Z20.822 Contact with and (suspected) exposure to COVID-19; Z79.899 Other long term (current) drug therapy
CPT/HCPCS: 36415; 74177; 80048; 80305; 80320; 81003; 81025; 83605; 84443; 85025; 87040; 87811; 96372; 99285; J3490; Q0177; Q9967